=== PATIENT | male | born 1990 | race Caucasian/White ===

== ENCOUNTER 2024-03-14 15:14 | Emergency (ER) | payer MEDICAID, SELFPAY ==
[2024-03-14 15:15] VITALS: BMI 30.3
[2024-03-14 16:03] VITALS: BP 125/77; PULSE 103; RESP 18; TEMP 37.2; O2SAT 95
--- NOTE | 2024-03-14 16:18 | EDNOTE_ITS ---
ED General RME/HPI General Chief complaint: Flu Like Symptoms Stated complaint: I THINK I HAVE WHOOPING COUGH COUGH X1 WK Time Seen by Provider: 03/14/24 16:18 Arrival date/time: 03/14/24 15:14 CC: Sore throat HPI ongoing for 1 week. 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 Patient is awake alert oriented nontoxic-appearing not in any acute distress no OTC medicines taken. Patient states childhood immunizations up-to-date Related Data Previous Rx's ?Medication ?Instructions ?Recorded acetaminophen 500 mg tablet 1,000 mg (2 x 500 mg) PO Q6H PRN 05/10/23 (Tylenol Extra Strength) pain #30 tabs ibuprofen 600 mg tablet 600 mg PO Q6H PRN pain #30 tabs 05/10/23 methocarbamol 500 mg tablet 1,000 mg (2 x 500 mg) PO Q8H PRN 05/10/23 muscle pain #30 tabs levofloxacin 750 mg tablet 750 mg PO QDAY #7 tabs 12/20/23 meloxicam 7.5 mg tablet 7.5 mg PO QDAY #10 tabs 03/14/24 Allergies Allergy/AdvReac Type Severity Reaction Status Date / Time No Known Drug Allergies Allergy Verified 03/14/24 15:16 Review of Systems Review of Systems Narrative Review of Systems: GEN: No fever, no chills, no weight loss EYES: No discharge, no visual changes, no pain HEENT: No ear pain, no congestion, + sore throat PULM: No shortness of breath, no cough, no congestion CV: No chest pain, no dyspnea on exertion, no palpitations GI: No nausea, no vomiting, no diarrhea, no pain, no constipation : No frequency, no urgency, no dysuria MUSC/SKEL: No joint pain, no back pain SKIN: No rash PSYCH: No hallucinations, no depression HEME/LYMPH: No easy bleeding or bruising tendencies NEURO: No weakness, no headache Past Medical History Past Medical History NEUROLOGIC: Negative Neurological Disorders or Dementia CARDIAC: Negative Cardiac Disorders, Atrial Fibrillation or Congestive Heart Failure RESPIRATORY: Negative Chronic Obstructive Pulmonary Disease (COPD), Asthma, Pulm onary Fibrosis or Pulmonary Embolism GASTROINTESTINAL: Positive Gastrointestinal Disorders and Gastroesophageal Reflux Disease; Negative Cirrhosis or Celiac Disease GENITOURINARY: Negative Genitourinary Disorders, Renal Disease, Kidney Stones or Inguinal Hernia MUSCULOSKELETAL: Negative Musculoskeletal Disorders or Marfan's Syndrome ENT: Negative Blind ENDOCRINE: Negative Endocrine Disorders, Diabetes Mellitus Type 1, Diabetes Mellitus Type 2, Hypoglycemia or Hyperthyroidism HEMATOLOGIC: Negative Blood Disorders or Sickle Cell Disease PSYCHO/SOCIAL: Positive Psychiatric Problems OTHER HISTORY: Negative Down Syndrome or Developmental Delay Social History SMOKING STATUS: Never smoker SUBSTANCE USE: does not use ED Exam Narrative Physical exam: [General: Not in any acute distress Head normocephalic HEENT: Eyes: Pupils are PERRLA EOMs are intact mouth pink moist membranes uvula is midline swallow symmetrical phonation is normal nose posterior pharynx erythema edema no exudative patches. Within acceptable limits Neck is supple nontender no JVD Chest equal chest rise nontender to palpation Respiratory: Clear to auscultation no wheezes crackles or rubs CV: Rate rhythm is regular no murmurs rubs or clicks Abdomen is flat, soft nontender no masses positive bowel sounds all 4 quadrants Back: No CVA tenderness no spinous process tenderness from cervical spine thoracic and lumbar spine Skin: Intact no petechiae rash induration ulceration or crepitus Extremities: Moving all extremity against resistance cap refill less than 2 seconds neurosensory intact Neuro: Awake alert oriented x3 Glascow coma 15 no focal deficits] Course Quality Measures none Vital Signs Vital signs: Vital Signs Temperature 99 F 03/14/24 16:03 Pulse Rate 103 H 03/14/24 16:03 Respiratory Rate 18 03/14/24 16:03 Blood Pressure 125/77 03/14/24 16:03 Pulse Oximetry (%) 95 03/14/24 16:03 Oxygen Delivery Method Room Air 03/14/24 16:03 [facility] Patient data External records reviewed:: [facility] previous records Clinical information provided by:: patient Social determinants that could affect healthcare access:: none Patient has the following chronic illnesses:: Depression anxiety How is presenting disease/condition affected by chronic disease/condition?: uneffected by Evaluation data The following diagnostics were reviewed and interpreted by me:: other (specify) (None) Lab and/or radiology exams considered but not ordered:: None Interpretation Summary: Sore throat probable URI Medications Medications considered but not ordered:: None Medication administrations:: None Consultations Consultation(s) initiated? (list below): No Diagnosis Differential Diagnosis ED Complaint MDM: Sore throat strep pharyngitis URI Most likely diagnosis given after review of the tests above:: URI Admission Indicated Admission indicated?: not indicated Explain why admission is indicated or not indicated:: Stable for outpatient follow-up Admission Request Was there a request for admission?: No Disposition Plan Disposition Plan: Discharge Discharge Attestation Discharge Attestation: The patient and all family members were given an opportunity to ask questions and understood the discharge instructions. Discharge instructions specifically effects, indications for sooner follow up or return to the emergency department, and the expected course of current diagnosis. Patient condition: Stable Medical Decision Making Differential Diagnosis Differential Diagnosis: Sore throat strep pharyngitis URI Discharge Plan Plan Patient Disposition: HOME (Self Care) Patient condition on transfer: Stable Prescriptions/Referrals Prescriptions/Med Rec: New meloxicam 7.5 mg tablet 7.5 mg PO QDAY Qty: 10 0RF No Action ibuprofen 600 mg tablet 600 mg PO Q6H PRN (Reason: pain) Qty: 30 0RF methocarbamol 500 mg tablet 1,000 mg PO Q8H PRN (Reason: muscle pain) Qty: 30 0RF acetaminophen [Tylenol Extra Strength] 500 mg tablet 1,000 mg PO Q6H PRN (Reason: pain) Qty: 30 0RF levofloxacin 750 mg tablet 750 mg PO QDAY Qty: 7 0RF Problem List Clinical Impression: URI (upper respiratory infection) Patient/Caregiver Discharge Instructions Education Materials: ED URI, Viral, No Abx (Adult) Additional Instructions: Take the medication as prescribed for this worsening of symptoms return the emergency room medially for further evaluation. Print Language: Bengali Stand Alone Forms: [employer] Award Info., Work/School Release, Patient Portal Info Letter SONIA/CHHAYA Supervising Physician SONIA/CHHAYA Supervising Physician: Good Hernandez ENP
== END 2024-03-14 16:28 | disposition home or self-care (01) ==
LOC: SERX 16:29
PROVIDERS: Emergency Provider Emergency Medicine; PCP Nurse Practitioner Family
DX: J06.9 Acute upper respiratory infection, unspecified (principal)
CPT/HCPCS: 99281

== ENCOUNTER 2024-04-09 18:43 | Emergency (ER) | payer MEDICAID, SELFPAY ==
[2024-04-09 18:43] VITALS: BMI 30.3
[2024-04-09 19:03] VITALS: BP 145/90; PULSE 115; RESP 18; TEMP 36.8; O2SAT 96
--- NOTE | 2024-04-09 19:07 | EDNOTE_ITS ---
Lower Extremity Injury RME/HPI General Chief Complaint: Extremity Injury, Lower Stated Complaint: stepped on a nail left foot Time Seen by Provider: 04/09/24 19:05 Source: patient Arrival date/time: 04/09/24 18:43 34-year-old male with no known medical history presents to the emergency room with a chief complaint of needing a tetanus shot after stepping on a nail 1 hour ago. Mode of arrival: ambulatory Limitations: no limitations Related Data Previous Rx's ?Medication ?Instructions ?Recorded acetaminophen 500 mg tablet 1,000 mg (2 x 500 mg) PO Q6H PRN 05/10/23 (Tylenol Extra Strength) pain #30 tabs ibuprofen 600 mg tablet 600 mg PO Q6H PRN pain #30 tabs 05/10/23 methocarbamol 500 mg tablet 1,000 mg (2 x 500 mg) PO Q8H PRN 05/10/23 muscle pain #30 tabs levofloxacin 750 mg tablet 750 mg PO QDAY #7 tabs 12/20/23 meloxicam 7.5 mg tablet 7.5 mg PO QDAY #10 tabs 03/14/24 Allergies Allergy/AdvReac Type Severity Reaction Status Date / Time No Known Drug Allergies Allergy Verified 03/14/24 15:16 Review of Systems Review of Systems Systems Reviewed: All systems reviewed, normal except as documented Constitutional Constitutional: Reports system reviewed and no additional complaints, except as documented, Denies fatigue, Denies fever(s), Denies headache(s) and Denies weakness Eyes Eyes: Reports system reviewed and no additional complaints, except as documented, Denies blurry vision and Denies change in vision ENT Ears, Nose, Mouth, and Throat: Reports system reviewed and no additional c omplaints, except as documented, Denies otalgia, Denies headache(s), Denies nasal congestion, Denies throat swelling and Denies vertigo Cardiovascular Cardiovascular: Reports system reviewed and no additional complaints, except as documented, Denies chest pain, Denies dyspnea and Denies dyspnea on exertion Respiratory Respiratory: Reports system reviewed and no additional complaints, except as documented, Denies chest congestion, Denies cough, Denies dyspnea, Denies dyspnea on exertion and Denies wheezing Gastrointestinal Gastrointestinal: Reports system reviewed and no additional complaints, except as documented, Denies abdominal pain, Denies cramping, Denies nausea and Denies vomiting Genitourinary Genitourinary: Reports system reviewed and no additional complaints, except as documented, Denies dysuria and Denies hematuria Musculoskeletal Musculoskeletal: Reports system reviewed and no additional complaints, except as documented and Denies back pain Integumentary/Breasts Skin/Breast: Reports system reviewed and no additional complaints, except as documented and Reports wounds (0.5 cm superficial puncture wound to left foot) Neurologic Neurologic: Reports system reviewed and no additional complaints, except as documented, Denies confusion, Denies headache(s), Denies lack of coordination, Denies vertigo and Denies weakness Psychiatric Psychiatric: Reports system reviewed and no additional complaints, except as documented, Denies anxiety, Denies confusion, Denies depression, Denies paranoia, Denies suicidal ideation and Denies tactile hallucinations Endocrine Endocrine: Reports system reviewed and no additional complaints, except as documented and Denies fatigue Hematologic/Lymphatic Hematologic/Lymphatic: Reports system reviewed and no additional complaints, except as documented and Denies lymphadenopathy Allergic/Immunologic Allergic/Immunologic: Reports system reviewed and no additional complaints, except as documented, Denies throat swelling, Denies urticaria and Denies wheezing Past Medical History Past Medical History NEUROLOGIC: Negative Neurological Disorders or Dementia CARDIAC: Negative Cardiac Disorders, Atrial Fibrillation or Congestive Heart Failure RESPIRATORY: Negative Chronic Obstructive Pulmonary Disease (COPD), Asthma, Pulmonary Fibrosis or Pulmonary Embolism GASTROINTESTINAL: Positive Gastrointestinal Disorders and Gastroesophageal Reflux Disease; Negative Cirrhosis or Celiac Disease GENITOURINARY: Negative Genitourinary Disorders, Renal Disease, Kidney Stones or Inguinal Hernia MUSCULOSKELETAL: Negative Musculoskeletal Disorders or Marfan's Syndrome ENT: Negative Blind ENDOCRINE: Negative Endocrine Disorders, Diabetes Mellitus Type 1, Diabetes Mellitus Type 2, Hypoglycemia or Hyperthyroidism HEMATOLOGIC: Negative Blood Disorders or Sickle Cell Disease PSYCHO/SOCIAL: Positive Psychiatric Problems OTHER HISTORY: Negative Down Syndrome or Developmental Delay Social History SMOKING STATUS: Never smoker SUBSTANCE USE: does not use ED Exam General Limitations: Present no limitations General appearance: Present alert and in no apparent distress Head Head exam: Present atraumatic Eye Eye exam: Present normal appearance, PERRL and EOMI ENT ENT exam: Present normal exam, normal oropharynx and mucous membranes moist Neck Neck exam: Present normal inspection, full ROM and trachea midline Chest Chest inspection: Present normal inspection and symmetric chest wall rise Respiratory Respiratory exam: Present normal lung sounds bilaterally Cardiovascular Cardiovascular exam: Present regular rate, normal rhythm and normal heart sounds Abdominal Exam Abdominal exam: Present soft and normal bowel sounds Extremities Exam Extremities exam: Present normal inspection and full ROM Back Exam Back exam: Present normal inspection and full ROM Neurological Exam Neurological exam: Present alert, oriented X3 and CN II-XII intact Psychiatric Psychiatric exam: Present normal affect and normal mood Skin Skin exam: Present warm, dry, intact and normal color Expanded Skin Exam Type of lesion: Present abrasion and other (0.5 cm puncture wound to the sole of the left foot) Distribution: Present LLE Description: Present tenderness Course Quality Measures none Orders Category Date Time Status Wound Care NOW Care 04/09/24 19:04 Active Tet,Diphth,Pertuss(Acell)-Tdap [Boostrix Vacc] Med 04/09/24 19:04 Discontinued 0.5 ml IMI .ONCE ONE Vital Signs Vital signs: Vital Signs Temperature 98.3 F 04/09/24 19:03 Pulse Rate 115 H 04/09/24 19:03 Respiratory Rate 18 04/09/24 19:03 Blood Pressure 145/90 H 04/09/24 19:03 Pulse Oximetry (%) 96 04/09/24 19:03 Oxygen Delivery Method Room Air 04/09/24 19:03 O2 saturation 96% within normal limits Extremity Injury, Lower MDM Narrative MDM Narrative:: 34-year-old male with no known medical history presents to the emergency room with a chief complaint of needing a tetanus shot after stepping on a nail 1 hour ago. Clinically the patient appears nontoxic and in no apparent distress. Physical examination shows a small 0.5 cm very superficial puncture wound to the left sole of the foot. Patient states the nail barely punctured the foot but there was some small blood on the sock. Patient states the no was removed and there is nothing inside. Patient states he does not remember the last time he had a tetanus shot. The wound was cleaned and irrigated. Tetanus shot was given patient was discharged and educated to follow-up with primary care provider and return to the emergency room for any evidence of worsening signs or symptoms Patient data External records reviewed:: [facility] previous records Clinical information provided by:: patient Social determinants that could affect healthcare access:: none Patient has the following chronic illnesses:: No chronic illness How is presenting disease/condition affected by chronic disease/condition?: no chronic disease Evaluation data The following diagnostics were reviewed and interpreted by me:: lab results and radiology exam(s) Lab and/or radiology exams considered but not ordered:: Labs and radiology exams considered and ordered Interpretation Summary: N/A Medications / Prescriptions Medications or Prescriptions considered but not ordered:: Medication given Medication administrations:: Medication Administration History Discontinued Medications Diphtheria/Tetanus/Acell Pertussis (Diphth,Pertuss(Acell),Tet Vac 0.5 Ml Vial) 0.5 ml IMi .ONCE ONE Stop: 04/09/24 19:05 Last Admin: 04/09/24 20:00 Dose: 0.5 ml Documented By: Tetanus vaccination updated Consultations Consultation(s) initiated? (list below): No Diagnosis Extremity Injury, Lower Differential Diagnosis: puncture wound of foot and other Most likely diagnosis given after review of the tests above:: Puncture wound of foot Admission Indicated Admission indicated?: not indicated Admission Request Was there a request for admission?: No Disposition Plan Disposition Plan: Discharge Discharge Attestation Discharge Attestation: The patient and all family members were given an opportunity to ask questions and understood the discharge instructions. Discharge instructions specifically effects, indications for sooner follow up or return to the emergency department, and the expected course of current diagnosis. Patient condition: Stable Discharge Plan Plan Patient Disposition: HOME (Self Care) Disposition Comment: Stable Prescriptions/Referrals Prescriptions/Med Rec: No Action ibuprofen 600 mg tablet 600 mg PO Q6H PRN (Reason: pain) Qty: 30 0RF methocarbamol 500 mg tablet 1,000 mg PO Q8H PRN (Reason: muscle pain) Qty: 30 0RF acetaminophen [Tylenol Extra Strength] 500 mg tablet 1,000 mg PO Q6H PRN (Reason: pain) Qty: 30 0RF levofloxacin 750 mg tablet 750 mg PO QDAY Qty: 7 0RF meloxicam 7.5 mg tablet 7.5 mg PO QDAY Qty: 10 0RF Problem List Clinical Impression: Puncture wound of foot Patient/Caregiver Discharge Instructions Education Materials: ED Puncture Wound (Foot) Additional Instructions: Please follow-up with your primary care provider in the next 24 to 48 hours. For any evidence of worsening signs or symptoms please return to the emergency room immediately Your tetanus vaccination was updated Print Language: Kinyarwanda Stand Alone Forms: [employer] Award Info., Patient Portal Info Letter Vaccines Vaccines Given During Stay: TDaP PA/ATTORNEY RECRUITER Supervising Physician PA/ATTORNEY RECRUITER Supervising Physician: Dr. Kilpatrick
[2024-04-09] MEDS: DIPHTH,PERTUSS(ACELL),TET VAC 0.5 ML VIAL IMi (20:00)
== END 2024-04-09 20:13 | disposition home or self-care (01) ==
LOC: SERX 19:22
PROVIDERS: Emergency Provider Emergency Medicine; PCP Nurse Practitioner Family
DX: S91.332A Puncture wound without foreign body, left foot, initial encounter (principal); W45.0XXA Nail entering through skin, initial encounter; Z23 Encounter for immunization
CPT/HCPCS: 90471; 90715; 99282

== ENCOUNTER 2024-06-29 07:05 | Day surgery (SDC) | payer MEDICAID, SELFPAY ==
[2024-06-28 14:45] VITALS: BMI 30.3
[2024-06-29] VITALS (11 sets, daily range): BP systolic 125–152; BP diastolic 71–103; PULSE 93–108; RESP 12–20; TEMP 36.6–37.2; O2SAT 95–99; BMI 34.7
[2024-06-29] MEDS: SODIUM CHLORIDE 0.9% 500 ML 500 ML 20 ML IV (09:17)
--- NOTE | 2024-06-29 09:51 | SUR.PHASEII ---
0951: Pt. AAOx4, vitals stable, breathing unlabored, no complaint of pain or nausea, no dressing in place, no active bleed noted, report received from July DONNELLY.
--- NOTE | 2024-06-29 10:30 | SUR.PHASEII ---
1030: Pt. AAOx4, vitals stable, breathing unlabored, no complaint of pain or nausea, no dressing in place, pt. able to pass gas, pt. tolerated sips of water well, pt. ambulated to wheelchair with steady gait and no assist, no complications. Gave discharge instructions to the pt. and his ride, both verbalized understanding and had no further questions. Pt. left with all personal belongings.
== END 2024-06-29 10:30 | disposition home or self-care (01) ==
PROVIDERS: PCP Nurse Practitioner Family; Referring Provider Internal Medicine Gastroenterology; Visit Provider Internal Medicine Gastroenterology
PROC: 0DJD8ZZ Inspection of Lower Intestinal Tract, Via Natural or Artificial Opening Endoscopic (ICD-10-PCS; CPT 45378; principal; 2024-06-29 08:30)
DX: K52.9 Noninfective gastroenteritis and colitis, unspecified (principal); K64.9 Unspecified hemorrhoids; K31.89 Other diseases of stomach and duodenum
CPT/HCPCS: 45380; A4217; A4649; J1200; J2175; J2250; J3010; J7040

== ENCOUNTER 2024-12-01 14:45 | Emergency (ER) | payer MEDICAID, SELFPAY ==
[2024-12-01] VITALS (8 sets, daily range): BP systolic 135–158; BP diastolic 86–115; PULSE 89–130; RESP 16–20; TEMP 36.8–37.2; O2SAT 92–99; BMI 34.2
--- NOTE | 2024-12-01 15:07 | EKG_ITS ---
[facility] Test Date: 2024-12-01 Pat Name: GINO MADRIGAL Department: Room: - Gender: Male Compliance Investigator: : 1990 Requested By: Yosi Howell ([email or web address]) Order Number: [id number] Reading MD: Yosi Howell (MACHINE TRACER) Measurements Intervals [place] Rate: 143 P: 44 FL: 109 QRS: 69 QRSD: 93 T: 41 QT: 342 QTc: 529 Interpretive Statements SINUS TACHYCARDIA WITH SHORT FL INTERVAL, POSSIBLE ATRIAL FLUTTER POSSIBLE RIGHT VENTRICULAR CONDUCTION DELAY [RSR (QR) IN V1/V2] NONSPECIFIC ST & T-WAVE ABNORMALITY ABNORMAL RHYTHM ECG No previous ECG available for comparison /store/S0/[id number]/[id number].pdf
--- NOTE | 2024-12-01 15:19 | PC.CC ---
1519-TOM Mckenzie informed building surveyorCONY Law that tag writer will be leaving today at 1530 and this pts MH eval will need to wait until tomorrow. building surveyorCONY Law acknowledged the communication. ASW will assess pt upon arrival in the AM if a consult is requested by the ER provider.
[2024-12-01 15:36] LABS: Basophils # (Auto) 0.1 Thou/mm3 (0.0-0.2); Basophils % (Auto) 1 % (0-2.5); Eosinophils # (Auto) 0.1 Thou/mm3 (0.0-0.5); Eosinophils % (Auto) 0 % (0-10); Hematocrit 56.4 % (41.0-53.0); Hemoglobin 19.5 g/dL (13.5-16.0); Immature Granulocytes Auto 0.07 Thou/mm3 (0.00-0.00); Lymphocytes # (Auto) 1.8 Thou/mm3 (1.0-4.8); Lymphocytes % (Auto) 14 % (10-50); Mean Corpuscular HGB Conc 34.6 g/dl (31.0-37.0); Mean Corpuscular Hemoglobin 30.9 pg (25.0-35.0); Mean Corpuscular Volume 89 fL (80-100); Monocytes # (Auto) 0.8 Thou/mm3 (0.0-0.8); Monocytes % (Auto) 6 % (0-12); Neutrophils # (Auto) 10.0 Thou/mm3 (1.8-7.7); Neutrophils % (Auto) 78 % (37-80); Nucleated Red Blood Cell # 0.00 Thou/mm3 (0.00-0.00); Nucleated Red Blood Cell % 0 /100 WBC (0); Platelet Count 333 Thou/mm3 (140-440); RDW Standard Deviation 51.9 fL (35.1-43.9); Red Blood Count 6.31 Miln/mm3 (4.50-5.90); White Blood Count 12.8 Thou/mm3 (3.8-10.6)
[2024-12-01 16:03] LABS: Alanine Aminotransferase 56 U/L (10-49); Albumin, Serum 5.4 gm/dL (3.5-5.0); Albumin/Globulin Ratio 1.8 (1.2-2.2); Alkaline Phosphatase 150 U/L (46-116); Anion Gap 14 (7-16); Aspartate Amino Transferase 37 U/L (0-34); BUN/Creatinine Ratio 6 Ratio (12-20); Bilirubin,Total 0.8 mg/dL (0.3-1.2); Blood Urea Nitrogen < 5 mg/dL (9-23); Calcium 10.6 mg/dL (8.3-10.6); Calcium (Corrected) 10.6 mg/dL (8.5-10.1); Carbon Dioxide 25.0 mMol/L (20.0-31.0); Chloride 102 mMol/L (98-107); Creatinine (Component) 0.9 mg/dL (0.6-1.3); Estimated Creatinine Clearance 154.1 mL/min (>60); Globulin 3.0 gm/dL (2.3-3.5); Glucose 103 mg/dL (74-106); Osmolality,Calculated 278 (275-295); Potassium 4.3 mMol/L (3.4-5.1); Sodium 141 mMol/L (136-145); Total Protein 8.4 gm/dL (5.7-8.2); eGFR > 60 See Note
--- NOTE | 2024-12-01 16:20 | EDNOTE_ITS ---
ED Psych RME/HPI General Chief Complaint: Psychiatric Symptoms Stated Complaint: MENTAL HEALTH EVAL Time Seen by Provider: 12/01/24 15:32 Arrival date/time: 12/01/24 14:45 RME / HPI RME / HPI Narrative: 34 year old male with history of schizophrenia, depression presents to the ED requesting a mental health evaluation and I want to be transported to a mental health hospital . Patient states he has recently ran out of his psychiatric m edications. States last night in attempts to sleep, he took 6 of his Hydroxyzine with a fifth of alcohol to help me sleep . States in spite of taking medication with alcohol, he had difficulty sleeping. In the ED, reports thoughts of possibly harming himself or others with no plan in place. Additionally stated if he were to be discharged home there would be a possibility of intentionally hurting himself. Patient mentioned he previously has been on Wellbutrin, Allegan, Risperidone, Olanzapine, and Abilify. States the Ability has provided the most relief in the past. Related Data Previous Rx's ?Medication ?Instructions ?Recorded acetaminophen 500 mg tablet 1,000 mg (2 x 500 mg) PO Q 6H PRN 05/10/23 (Tylenol Extra Strength) pain #30 tabs ibuprofen 600 mg tablet 600 mg PO Q6H PRN pain #30 t abs 05/10/23 methocarbamol 500 mg tablet 1,000 mg (2 x 500 mg) PO Q 8H PRN 05/10/23 muscle pain #30 tabs levofloxacin 750 mg tablet 750 mg PO QDAY #7 tabs 10/0 08/07 meloxicam 7.5 mg tablet 7.5 mg PO QDAY #10 tabs 12/12/08 Allergies Allergy/AdvReac Type Severity Reaction Status Date / Time No Known Drug Allergies Allergy Verified 06/29/24 08:27 Review of Systems Review of Systems Systems Reviewed: All systems reviewed, normal except as documented Past Medical History Past Medical History GASTROINTESTINAL: Positive Gastrointestinal Disorders (DIARRHEA), Irritable Bowel and Gastroesophageal Reflux Disease MUSCULOSKELETAL: Positive Musculoskeletal Disorders (spinal osteoarthiritis) and Arthritis PSYCHO/SOCIAL: Positive Psychiatric Problems, Depression and Anxiety Family History FAMILY HISTORY: Positive Family Respiratory Disorders (dad has asthma), Family Cardiac Disorders (mom) and Family Gastrointestinal Problems (grandfather colon cancer , grandmother of colon cancer) Surgical History SURGICAL: Positive Oral Surgery (WISDOM TEETH) Social History SMOKING STATUS: Never smoker SUBSTANCE USE: does not use ED Exam Narrative Physical exam: GENERAL APPEARANCE: alert and oriented x 4, tremulous, diaphoretic, appeared anxious, mildly agitated HEENT: Normocephalic, atraumatic; pupils equal, round, reactive to light; EOMI; mucous membranes pink, moist; oropharynx clear NECK: Supple LUNGS: CTABL; no wheezes, no rales, no rhonchi HEART: Tachycardic; normal S1, S2; no murmurs ABDOMEN: non distended; normal BS; soft, no tenderness, no guarding, no rebound; no masses, no organomegaly, no hernia BACK: no CVA tenderness EXTREMITIES: atraumatic; no edema NEUROLOGIC: awake; alert and oriented x4; cranial nerves II-XII grossly intact; no focal sensory or motor deficits PSYCHIATRIC: Appears anxious, mildly agitated SKIN: warm, diaphoretic, normal color; no rashes Course Quality Measures none Orders Category Date Time Status 1798 Psychiatric Hold NOW Care 12/01/24 16:30 Ordered Consult [employer] NOW Care 12/01/24 15:15 Completed EKG (ED ONLY) *Do not use* NOW Care 12/01/24 15:07 Completed EKG (ED Only) Stat Exams 12/01/24 15:07 Draft Alcohol, Blood Medical Stat Lab 12/01/24 15:25 Completed Alcohol, Urine Stat Lab 12/01/24 14:00 Completed CBC Stat Lab 12/01/24 15:25 Completed CMP [Comprehensive Metabolic Panel] Stat Lab 12/01/24 15:25 Completed Drug Screen,Urine Stat Lab 12/01/24 14:00 Completed ARIPiprazole [Abilify] Med 12/01/24 16:22 Discontinued 15 mg PO X1 ONE DiphenhydrAMINE [Benadryl] Med 12/01/24 16:22 Discontinued 50 mg PO X1 ONE LORazepam [Ativan] Med 12/01/24 16:22 Discontinued 2 mg PO X1 ONE Sodium Chloride 0.9% 1000 ml [Ns] 1,000 ml Med 12/01/24 16:22 Discontinued IV 999 mls/hr Sodium Chloride 0.9% 1000 ml [Ns] 1,000 ml Med 12/01/24 16:22 Discontinued IV 999 mls/hr Vital Signs Vital signs: Vital Signs Temperature 98.4 F 12/01/24 15:05 Pulse Rate 130 H 12/01/24 15:05 Respiratory Rate 18 12/01/24 15:05 Blood Pressure 136/89 H 12/01/24 15:05 Pulse Oximetry (%) 95 12/01/24 15:05 Oxygen Delivery Method Room Air 12/01/24 15:05 Pulse ox is 95% on room air which is adequate. Psych MDM Narrative MDM Narrative:: Margarita Ruiz am scribing for and in the presence of Dr. Baron. 1800: Patient signed out to Dr. Romero pending medical clearance for mental health evaluation. Patient data External records reviewed:: [facility] previous records (I reviewed ED visit on 04/09/2023) and EMS form Clinical information provided by:: patient Social determinants that could affect healthcare access:: mental health Patient has the following chronic illnesses:: psych history, anxiety, depression How is presenting disease/condition affected by chronic disease/condition?: exacerbated by Evaluation data The following diagnostics were reviewed and interpreted by me:: lab results and EKG tracing(s) Lab and/or radiology exams considered but not ordered:: None Interpretation Summary: UDS positive for alcohol and marijuana Medications / Prescriptions Medications or Prescriptions considered but not ordered:: None Medication administrations:: Medication Administration History Discontinued Medications Aripiprazole (Aripiprazole 5 Mg Tablet) 15 mg PO X1 ONE Stop: 12/01/24 16:23 Last Admin: 12/01/24 17:09 Dose: 15 mg Documented By: BY Diphenhydramine HCl (Diphenhydramine 25 Mg Capsule) 50 mg PO X1 ONE Stop: 12/01/24 16:23 Last Admin: 12/01/24 16:31 Dose: 50 mg Documented By: BY Sodium Chloride (Ns) 1,000 mls @ 999 mls/hr IV .Q1H1M ONE Stop: 12/01/24 17:22 Last Infusion: 12/01/24 17:57 Dose: Infused Documented By: Admin: 12/01/24 16:56 Dose: 999 mls/hr Documented By: BY Sodium Chloride (Ns) 1,000 mls @ 999 mls/hr IV .Q1H1M ONE Stop: 12/01/24 17:22 Last Infusion: 12/01/24 17:58 Dose: Infused Documented By: Admin: 12/01/24 16:57 Dose: 999 mls/hr Documented By: BY Lorazepam (Lorazepam 0.5 Mg Tablet) 2 mg PO X1 ONE Stop: 12/01/24 16:23 Last Admin: 12/01/24 16:32 Dose: 2 mg Documented By: BY See above Consultations Consultation(s) initiated? (list below): No Diagnosis Psych Differential Diagnosis: acute psychosis, chronic schizophrenia, suicidal ideation, bipolar disorder, depression, drug-induced psychotic disorder and acute anxiety Most likely diagnosis given after review of the tests above:: Schizophrenia Admission Indicated Admission indicated?: not indicated Explain why admission is indicated or not indicated:: Patient signed out pending final disposition. Admission Request Was there a request for admission?: No Disposition Plan Disposition Plan: other (specify) (Signed out to Dr. Romero ) Discharge Plan Plan Patient Disposition: [facility] Discharge Disposition comment: [facility] Prescriptions/Referrals Prescriptions/Med Rec: No Action ibuprofen 600 mg tablet 600 mg PO Q6H PRN (Reason: pain) Qty: 30 0RF methocarbamol 500 mg tablet 1,000 mg PO Q8H PRN (Reason: muscle pain) Qty: 30 0RF acetaminophen [Tylenol Extra Strength] 500 mg tablet 1,000 mg PO Q6H PRN (Reason: pain) Qty: 30 0RF levofloxacin 750 mg tablet 750 mg PO QDAY Qty: 7 0RF meloxicam 7.5 mg tablet 7.5 mg PO QDAY Qty: 10 0RF Referrals: No Primary/Family,Physician [Primary Care Provider] - In 1 week Problem List Clinical Impression: Suicidal ideation Patient/Caregiver Discharge Instructions Print Language: French Stand Alone Forms: [employer] Info., Patient Portal Info Letter
--- NOTE | 2024-12-01 16:21 | PC.NURSE ---
patient states he drank about 1/2 fifth of alchol today, along with cyclobenzaprine 10mg, hydroxizine x6 pills yesterday , and has also been smoking marijuana, patient states they took my my guns but there is always tall buildings, i want to go to sleep and not wake up, i just havnt done what i need to get to the point i should , notified , patient placed on a 1798
[2024-12-01 16:32] LABS: Alcohol, Urine Positive (Negative); Amphetamine/Methamp Scrn,U Negative (Negative); Barbiturate Screen,Urine Negative (Negative); Benzodiazepines Screen,Urine Negative (Negative); Benzoylecgonine Screen, Ur Negative (Negative); Fentanyl Screen,Urine Negative (Negative); Opiate Screen,Urine Negative (Negative); THC Screen,Urine Positive (Negative)
[2024-12-01] MEDS: SODIUM CHLORIDE 0.9% 1000 ML 1,000 ML 999 ML IV ×2 (16:56→16:57)
[2024-12-01 16:58] LABS: Alcohol, Blood Medical 90.6 mg/dL (0-10.0)
--- NOTE | 2024-12-01 18:30 | PD.EDADDENDU ---
Emergency Room Addendum Addendum Narrative: Case was signed out to me awaiting labs. I reviewed the labs. There is evidence for polycythemia. Urinary tox screen was positive for marijuana and alcohol with an alcohol level of 90. Patient was hydrated with normal saline and given Ativan Benadryl and Abilify p.o. Heart rate now is down from the 140s to 110. Patient states that he feels better. He is medically clear for group social worker in the morning. Dr. Garcia had placed the patient on a 179 hold.
[2024-12-02 05:47] VITALS: BP 151/106; PULSE 91; RESP 14; TEMP 36.6; O2SAT 96
[2024-12-02 08:04] VITALS: BP 157/107; PULSE 100; RESP 20; TEMP 37.3; O2SAT 96
--- NOTE | 2024-12-02 09:39 | PC.CC ---
Addendum entered by Emmy Mckenzie 12/02/24 10:20: 0745- Pt is a 34 yo male who entered the ER voluntarily requesting an MH evaluation. ASW Emmy Mckenzie met with patient [id number] to complete assessment. ASW introduced self, role, and reason for assessment. ASW disclosed limits of confidentiality as well. Patient appeared alert and oriented to self, place, and situation. Patient was pleasant; his mood appeared depressed; his behavior appeared disinhibited with flat affect. Patient?s thought process was linear and organized. No signs of delusions, paranoid or V/h. However, pt disclosed daily paranoia and reported commanding voices telling him to end his life. Pt admitted to marijuana use and weekly alcohol use. Pt reports he had insomina and attempts to overdose on various medications, including alcohol and marijuana use to use as a sleep aid. Pt reports he is not medication compliant and has not been for the past 4 months. Pt stated he is connected to [facility] but has not made his appointments. Pt reports he is highly suicidal and will end his life by excessively drinking alcohol and taking any medications he has at home. Pt reports passive HI but is fearful that it may get worse. Pt does not have a plan or intent regarding HI, but does have a plan and intent regarding SI. Pt states he lives with family but they are no support to him. Pt names his father as a strong support in his life, but lives [place] away from his hometown. Pt reports he needs help and if he does not get help immediately he will fully follow through with ending his life. Pt is fully ambulatory and does his own ADLs. No use use of DME or O2. ASW staffed this case with [employer], Director [place] and it was determined that the best course of action would be LPS placement. ASW communicated this information with ER provider and he agreed as well. Assgined RN is aware as well as the sewing machine assembler. ASW will search for LPS placement. Original Note: 0949-Melanie from Intake at [facility] called with acceptance. Accepting Dr. Antoni Garcia, pt will go to the [facility] (no room assigned yet). Nurse to Nurse at [phone].
[2024-12-02 10:00] VITALS: BP 162/116; PULSE 111; RESP 20; TEMP 36.8; O2SAT 100
--- NOTE | 2024-12-02 10:09 | PC.CC ---
Addendum entered by Emmy Mckenzie 12/02/24 10:26: 1020-manager employee relations and Assigned RN reported to ASW that pt called LE to report that he was involved in a social media assassination of Enrique Epperson. Pt was viewed to be displaying active paranoia along with bizarre behavior believing that he is part of a national security investigation. manager employee relations received the report information from [employer]. Original Note: 0745- Pt is a 34 yo male who entered the ER voluntarily requesting an MH evaluation. ASW Emmy Mckenzie met with patient [id number] to complete assessment. ASW introduced self, role, and reason for assessment. ASW disclosed limits of confidentiality as well. Patient appeared alert and oriented to self, place, and situation. Patient was pleasant; his mood appeared depressed; his behavior appeared disinhibited with flat affect. Patient?s thought process was linear and organized. No signs of delusions, paranoid or V/h. However, pt disclosed daily paranoia and reported commanding voices telling him to end his life. Pt admitted to marijuana use and weekly alcohol use. Pt reports he had insomina and attempts to overdose on various medications, including alcohol and marijuana use to use as a sleep aid. Pt reports he is not medication compliant and has not been for the past 4 months. Pt stated he is connected to [facility] but has not made his appointments. Pt reports he is highly suicidal and will end his life by excessively drinking alcohol and taking any medications he has at home. Pt reports passive HI but is fearful that it may get worse. Pt does not have a plan or intent regarding HI, but does have a plan and intent regarding SI. Pt states he lives with family but they are no support to him. Pt names his father as a strong support in his life, but lives [place] away from his hometown. Pt reports he needs help and if he does not get help immediately he will fully follow through with ending his life. Pt is fully ambulatory and does his own ADLs. No use use of DME or O2. ASW staffed this case with [employer], Director [place] Wall and it was determined that the best course of action would be LPS placement. ASW communicated this information with ER provider and he agreed as well. Assgined RN is aware as well as the manager employee relations. ASW will search for LPS placement.
--- NOTE | 2024-12-02 11:07 | EDNOTE_ITS ---
Emergency Room Addendum Addendum Narrative: 0600: Care assumed from Dr. Romero, the previous shift emergency physician. Past medical, surgical, social and family history reviewed. Vitals and home medications reviewed. I will assume the care of the patient at this time, pending mental health evaluation. Please refer to the emergency department record for history and examination from initial visit.?The following addendum documentation note is intended to reflect any pending information, findings, or radiology results not included in the patient?s initial chart. Patient has been evaluated by our social media director and placed on a 5150 hold, pending LPS facility placement. Patient has been accepted by Dr. Garcia at [facility].
--- NOTE | 2024-12-02 12:08 | PC.NURSE ---
NURSE TO NURSE ATTEMPTED AT THIS TIME NO ANSWER
== END 2024-12-02 11:25 ==
PROVIDERS: Nurse Practitioner Primary Care; Emergency Provider Family Medicine
DX: R45.851 Suicidal ideations (principal); F32.A Depression, unspecified
CPT/HCPCS: 36415; 80053; 80307; 80320; 85025; 93005; 96127; 96360; 99284; J7030; A9270; G0480